=== PATIENT | female | born 1970 | race Caucasian/White ===

== ENCOUNTER → 2016-10-05 | Outpatient (CLI) | payer MEDICAID ==
--- NOTE | 2016-10-05 18:12 | DX ---
Left foot, 3 views. HISTORY: Pain after inversion injury. Evaluate for fracture. FINDINGS: Normal alignment. Joint spaces are maintained. No fracture identified. Incidental note of moderate size plantar calcaneal spur. IMPRESSION: Negative for fracture.
== END ==
LOC: CIMAGING 15:52
PROVIDERS: ATTEND Family Medicine
DX: M79.672 Pain in left foot (principal)
CPT/HCPCS: 73630-PO